=== PATIENT | female | born 1960 | race African-American/Black ===

== ENCOUNTER 2019-06-11 14:32 | Emergency (ER) | payer BC, MEDICAID ==
[~2019-06-11] VITALS: Ht 172.7 cm; Wt 73.0 kg
[2019-06-11] MEDS ORDERED: SODIUM CHLORIDE 0.9% 1,000 ML IV ONE (16:05)
[2019-06-11 16:16] LABS: HEMATOCRIT. 33.6 % (36.0-48.0); HEMOGLOBIN. 11.3 g/dL (12.0-16.0); MEAN CORPUSCULAR HEMOGLOBIN 29.9 pg (28.0-32.0); MEAN CORPUSCULAR VOLUME 88.7 fL (81.0-99.0); MEAN PLATELET VOLUME 6.5 fl (7.4-10.4); PLATELET 341 x1000/uL (130-400); RED BLOOD CELL COUNT 3.79 mill/uL (4.2-5.4); RED CELL DISTRIBUTION WIDTH 21.6 % (11.6-14.6)
[2019-06-11 16:20] LABS: CHLORIDE 110 mEq/L (98-107)
[2019-06-11 16:37] LABS: PLATELET ESTIMATE NORMAL
[2019-06-11 18:09] VITALS: BP 138/83
== END 2019-06-11 18:16 | disposition home or self-care (01) ==
LOC: ER 14:32
DX: N93.8 Other specified abnormal uterine and vaginal bleeding (principal); D25.9 Leiomyoma of uterus, unspecified; I10 Essential (primary) hypertension; Z98.51 Tubal ligation status
CPT/HCPCS: 36415; 76830; 76856; 80053; 85025; 86850; 86900; 86901; 99284; J7030

== ENCOUNTER 2021-01-16 01:14 | Emergency (ER) | payer MEDICAID ==
[~2021-01-16] VITALS: Ht 160 cm; Wt 68.0 kg
[2021-01-16 04:41] VITALS: BP 123/82
== END 2021-01-16 04:41 | disposition home or self-care (01) ==
LOC: ER 01:14
DX: R51.9 Headache, unspecified (principal); F10.129 Alcohol abuse with intoxication, unspecified; I10 Essential (primary) hypertension; Z98.51 Tubal ligation status; W06.XXXA Fall from bed, initial encounter; Y93.89 Activity, other specified; Y92.89 Other specified places as the place of occurrence of the external cause; Y99.8 Other external cause status; Y90.9 Presence of alcohol in blood, level not specified
CPT/HCPCS: 93005; 99285